=== PATIENT | male | born 1980 | race Caucasian/White ===

== ENCOUNTER → 2017-09-04 07:03 | Outpatient (CLI) | payer MEDICAID | END | disposition home or self-care (01) | LOC: D.RAD 07:03 | DX: R07.9 Chest pain, unspecified (principal) ==

== ENCOUNTER → 2017-10-28 08:51 | Outpatient (CLI) | payer MEDICAID | END | disposition home or self-care (01) | LOC: D.NM 10-25 12:30 | DX: R07.9 Chest pain, unspecified (principal) ==